=== PATIENT | male | born 1985 | race Caucasian/White ===

== ENCOUNTER 2017-03-01 17:32 | Observation (INO) | payer OTHER ==
[2017-03-01 18:18] LABS: ABS Basophils 0.1 10^3/ul (0-0.2); ABS Eosinophils 0 10^3/ul (0-0.6); ABS Lymphocytes 1.8 10^3/ul (1.0-4.8); ABS Monocytes 1.3 10^3/ul (0-0.8); ABS Neutrophils 16.6 10^3/ul (1.5-7.7); ABS Nucleated RBC 0.01 10^3/ul; Eosinophil % 0.1 % (0-6); Hematocrit 43 % (42-52); Hemoglobin 14.7 g/dl (14.0-18.0); Mean Corpuscular HGB Conc 34 g/dl (31-36); Mean Corpuscular Hemoglobin 30 pg (27-31); Mean Corpuscular Volume 88 fL (80-94); Mean Platelet Volume 8 um3 (7.4-10.4); Nucleated Red Blood Cells % 0; Platelet Count 328 10^3/ul (150-450); Red Cell Distribution Width 13 % (10.5-15); White Blood Count 19.8 10^3/ul (3.5-10.8)
[2017-03-01] MEDS ORDERED: NS 0.9% 1000 ML* 2,000 ML IV ONE ×2 (18:20→20:34)
[2017-03-01 18:31] LABS: EGFR Non-African American 66.5 (>60)
[2017-03-01] MEDS ORDERED: Iohexol 350* (CONTRAST) 500 ML MDV IV ONE (18:42)
--- NOTE | 2017-03-01 18:56 | RAD ---
INDICATION: Sharp shooting pains in the left lower ribs with inspiration COMPARISON: None TECHNIQUE: PA and lateral views of the chest were obtained. FINDINGS: The heart and mediastinum are normal in size and contour. The lungs are grossly clear. There is no evidence of large pleural effusion. Visualized bones are normal for the patient's age. There is no radiographic evidence of free air beneath the diaphragm IMPRESSION: No radiographic evidence of acute cardiopulmonary disease.
--- NOTE | 2017-03-01 19:20 | ED ---
HPI Chest Pain - HPI Summary HPI Summary: 31M presents with left lower rib pain with inspiration for past couple hours. He states the pain is sharp. He is diaphoretic on exam. He does smoke. He denies any recent travel or surgeries. He denies any nausea or vomiting. pain is located on left lower ribs and LUQ. normal bowel movement today. He denies any fever. He states was sick three weeks ago with a cold for three days but that has resolved. His pain started 30mins after he got some horrible news from his . He states that the pain is sharp and does not radiate anywhere. no history of kidney stones. only significant family history is DM. no history of CAD or blood clots. He denies any pain or swelling in his calf. He denies any cough. He denies using any drugs or ETOH today. family states may have anxiety but has never acted like this before. - History of Current Complaint Chief Complaint: EDChestWallPain Time Seen by Provider: 03/01/17 17:59 Pain Intensity: 9 - Allergy/Home Medications Allergies/Adverse Reactions: Allergies Allergy/AdvReac Type Severity Reaction Status Date / Time No Known Allergies Allergy Verified 03/01/17 17:40 Home Medications: Home Medications NK [No Home Medications Reported] 03/01/17 [History Confirmed 03/01/17] PMH/Surg Hx/FS Hx/Imm Hx Endocrine/Hematology History: Denies: Hx Diabetes Cardiovascular History: Denies: Hx Hypertension History: Denies: Hx Renal Disease Infectious Disease History: Yes Infectious Disease History: Denies: Traveled Outside the [place] in Last 30 Days - Family History Known Family History: Positive: Diabetes - Social History Alcohol Use: Rare Substance Use Type: Reports: None Smoking Status (MU): Light Every Day Tobacco Smoker Review of Systems Negative: Fever Positive: Chest Pain Positive: Shortness Of Breath. Negative: Cough Positive: Abdominal Pain. Negative: Vomiting, Diarrhea, Nausea All Other Systems Reviewed And Are Negative: Yes Physical Exam Triage Information Reviewed: Yes Vital Signs On Initial Exam: Initial Vitals Temp Pulse Resp BP Pulse Ox 98.6 F 97 18 151/123 94 03/01/17 17:37 03/01/17 17:37 03/01/17 17:37 03/01/17 17:37 03/01/17 17:37 Vital Signs Reviewed: Yes Appearance: Positive: Ill-Appearing Skin: Positive: Warm, Dry Head/Face: Positive: Normal Head/Face Inspection Eyes: Positive: Normal, EOMI, CLARK, Conjunctiva Clear ENT: Positive: Normal ENT inspection, Pharynx normal, TMs normal Respiratory/Lung Sounds: Positive: Clear to Auscultation, Breath Sounds Present , Other - tenderness over lateral aspect of ribs 7-12 Cardiovascular: Positive: Normal, RRR Abdomen Description: Positive: Soft, Other: - tenderness RUQ Bowel Sounds: Positive: Present Musculoskeletal: Positive: Normal Neurological: Positive: Normal Psychiatric: Positive: Normal - Abdi Coma Scale Coma Scale Total: 15 Diagnostics - Vital Signs Vital Signs Temp Pulse Resp BP Pulse Ox 03/01/17 19:00 104 128/66 98 03/01/17 18:37 100 149/78 97 03/01/17 18:08 92 03/01/17 18:00 111 34 151/82 92 03/01/17 17:39 87 95 03/01/17 17:38 151/123 03/01/17 17:37 98.6 F 97 18 151/123 94 - Laboratory Lab Results: Lab Results 03/01/17 03/01/17 03/01/17 Range/Units 18:07 18:07 18:07 WBC 19.8 H (3.5-10.8) 10^3/ul RBC 4.90 (4.0-5.4) 10^6/ul Hgb 14.7 (14.0-18.0) g/dl Hct 43 (42-52) % MCV 88 (80-94) fL MCH 30 (27-31) pg MCHC 34 (31-36) g/dl RDW 13 (10.5-15) % Plt Count 328 (150-450) 10^3/ul MPV 8 (7.4-10.4) um3 Neut % (Auto) 83.9 H (38-83) % Lymph % (Auto) 9.0 L (25-47) % Kittson % (Auto) 6.6 (1-9) % Eos % (Auto) 0.1 (0-6) % Baso % (Auto) 0.4 (0-2) % Absolute Neuts (auto) 16.6 H (1.5-7.7) 10^3/ul Absolute Lymphs (auto) 1.8 (1.0-4.8) 10^3/ul Absolute Monos (auto) 1.3 H (0-0.8) 10^3/ul Absolute Eos (auto) 0 (0-0.6) 10^3/ul Absolute Basos (auto) 0.1 (0-0.2) 10^3/ul Absolute Nucleated RBC 0.01 10^3/ul Nucleated RBC % 0 D-Dimer, Quantitative 609 H (Less Than 230) ng/mL Sodium 133 (133-145) mmol/L Potassium 4.4 (3.5-5.0) mmol/L Chloride 98 L (101-111) mmol/L Carbon Dioxide 30 (22-32) mmol/L Anion Gap 5 (2-11) mmol/L BUN 11 (6-24) mg/dL Creatinine 1.25 H (0.67-1.17) mg/dL Est GFR ( Amer) 85.5 (>60) Est GFR (Non-Af Amer) 66.5 (>60) BUN/Creatinine Ratio 8.8 (8-20) Glucose 137 H (70-100) mg/dL Lactic Acid (0.5-2.0) mmol/L Calcium 10.0 (8.6-10.3) mg/dL Total Bilirubin 1.10 H (0.2-1.0) mg/dL AST 54 H (13-39) U/L ALT 87 H (7-52) U/L Alkaline Phosphatase 87 (34-104) U/L Troponin I 0.00 (<0.04) ng/mL C-React Prot High Sens 18.20 mg/L Total Protein 8.1 (6.4-8.9) g/dL Albumin 4.3 (3.2-5.2) g/dL Globulin 3.8 (2-4) g/dL Albumin/Globulin Ratio 1.1 (1-3) Lipase < 10 L (11.0-82.0) U/L TSH 1.47 (0.34-5.60) mcIU/mL 03/01/17 Range/Units 18:07 WBC (3.5-10.8) 10^3/ul RBC (4.0-5.4) 10^6/ul Hgb (14.0-18.0) g/dl Hct (42-52) % MCV (80-94) fL MCH (27-31) pg MCHC (31-36) g/dl RDW (10.5-15) % Plt Count (150-450) 10^3/ul MPV (7.4-10.4) um3 Neut % (Auto) (38-83) % Lymph % (Auto) (25-47) % Kittson % (Auto) (1-9) % Eos % (Auto) (0-6) % Baso % (Auto) (0-2) % Absolute Neuts (auto) (1.5-7.7) 10^3/ul Absolute Lymphs (auto) (1.0-4.8) 10^3/ul Absolute Monos (auto) (0-0.8) 10^3/ul Absolute Eos (auto) (0-0.6) 10^3/ul Absolute Basos (auto) (0-0.2) 10^3/ul Absolute Nucleated RBC 10^3/ul Nucleated RBC % D-Dimer, Quantitative (Less Than 230) ng/mL Sodium (133-145) mmol/L Potassium (3.5-5.0) mmol/L Chloride (101-111) mmol/L Carbon Dioxide (22-32) mmol/L Anion Gap (2-11) mmol/L BUN (6-24) mg/dL Creatinine (0.67-1.17) mg/dL Est GFR ( Amer) (>60) Est GFR (Non-Af Amer) (>60) BUN/Creatinine Ratio (8-20) Glucose (70-100) mg/dL Lactic Acid 1.1 (0.5-2.0) mmol/L Calcium (8.6-10.3) mg/dL Total Bilirubin (0.2-1.0) mg/dL AST (13-39) U/L ALT (7-52) U/L Alkaline Phosphatase (34-104) U/L Troponin I (<0.04) ng/mL C-React Prot High Sens mg/L Total Protein (6.4-8.9) g/dL Albumin (3.2-5.2) g/dL Globulin (2-4) g/dL Albumin/Globulin Ratio (1-3) Lipase (11.0-82.0) U/L TSH (0.34-5.60) mcIU/mL Result Diagrams: 03/01/17 18:07 03/01/17 18:07 Lab Statement: Any lab studies that have been ordered have been reviewed, and results considered in the medical decision making process. - Radiology chest Xray Interpretation: No Acute Changes Radiology Interpretation Completed By: Radiologist - CT CTA CT Interpretation: Positive (See Comments) - 1. Poor bolus timing renders this examination nondiagnostic for determining pulmonary embolism beyond the right and left mainstem pulmonary arteries. There is no definite filling defect of the mainstem or right or left pulmonary arteries. 2. There is nodular density at the dependent portion of the left lower lobe which could represent round atelectasis or pneumonia depending on the patient's clinical presentation. 3. There is a right upper lobe pulmonary nodule with an average dimension of approximately 9 mm. Please correlate to any history of malignancy. Otherwise the patient's age would indicate this is infectious versus inflammatory and less likely neoplastic. CT Interpretation Completed By: Radiologist - EKG No standard instances Cardiac Rate: Tachycardia EKG Rhythm: Sinus Tachycardia EKG Interpretation: sinus tachycardia Re-Evaluation - Re-Evaluation First Eval Re-Evaluation Time: 21:54 Change: Improved Comment: feeling better with fluids Chest Pain Course/Dx - Course Course Of Treatment: 31M presents with left lower rib pain with inspiration for past couple hours. He states the pain is sharp. He is diaphoretic on exam. He does smoke. He denies any recent travel or surgeries. He denies any nausea or vomiting. pain is located on left lower ribs and LUQ. normal bowel movement today. He denies any fever. He states was sick three weeks ago with a cold for three days but that has resolved. His pain started 30mins after he got some horrible news from his . He states that the pain is sharp and does not radiate anywhere. no history of kidney stones. only significant family history is DM. no history of CAD or blood clots. He denies any pain or swelling in his calf. He denies using any drugs or ETOH today. on exam tenderness over left lower ribs and LUQ. appears ill. diaphoretic. labs wbc 19, d-dimer elevated. lactic normal. chest xray normal. is in sinus tachycardia on ekg. CTA unable to see if is blood clot, in left lower lobe possible pneumonia. had patient ambulate and heart rate increased in 130 and pulse ox 92. discussed with dr green and said to have patient admitted for pnemonia and possible PE rule out? dr green spoke with dr cain who agrees to admit. - Chest Pain Differential Diagnosis/HQI/PQRI: Chest Wall, Lower Respiratory Infection, Pulmonary Embolism - Diagnoses Provider Diagnoses: Chest pain, Pneumonia Discharge - Discharge Plan Condition: Stable Disposition: ADMITTED TO [facility]
--- NOTE | 2017-03-01 20:08 | RAD ---
INDICATION: Left upper quadrant pain with inspiration. COMPARISON: None. TECHNIQUE: Multidetector CT angiography images of the chest, abdomen and pelvis were obtained from the lung apices to the ischial tuberosities following the injection of 150 mL of Omnipaque 350 intravenous contrast. ANGIOGRAPHIC FINDINGS: Poor bolus timing renders this examination nondiagnostic for pulmonary embolism beyond the right and left mainstem pulmonary arteries. A cardiac technician lead is overlying the midline chest at the level of the mainstem pulmonary artery which may have caused the imaging to start sooner than when adequate contrast had filled the pulmonary arterial vasculature. There is no obvious filling defect in the mainstem or right or left pulmonary arteries. The lobar branches and beyond are not adequately evaluated for pulmonary embolism. NON-ANGIOGRAPHIC FINDINGS: CHEST: At the posterior aspect of the right upper lobe there is a nodule measuring 1 cm in the axial plane and 8 mm in the cephalocaudal projection (axial image 21 and sagittal image 49). At the right lung base there is mostly pleural-based round density (image 40 of 51). The lungs are otherwise grossly clear. There is no mediastinal or hilar lymphadenopathy. The heart and major vascular structures are grossly normal in appearance. ABDOMEN & PELVIS: The liver, spleen, pancreas and adrenal glands are grossly normal in appearance. The gallbladder is normal. The kidneys are normal in appearance without focal mass, calcification or signs of hydronephrosis. Contrast is seen filling the collecting system on the delayed phase imaging. Evaluation of the gastrointestinal tract is limited without oral contrast.. The small and large bowel are not distended. There is no gross retroperitoneal or mesenteric lymphadenopathy. The pelvic viscera is normal in appearance. . There are no sinister bone lesions. IMPRESSION: 1. Poor bolus timing renders this examination nondiagnostic for determining pulmonary embolism beyond the right and left mainstem pulmonary arteries. There is no definite filling defect of the mainstem or right or left pulmonary arteries. 2. There is nodular density at the dependent portion of the left lower lobe which could represent round atelectasis or pneumonia depending on the patient's clinical presentation. 3. There is a right upper lobe pulmonary nodule with an average dimension of approximately 9 mm. Please correlate to any history of malignancy. Otherwise the patient's age would indicate this is infectious versus inflammatory and less likely neoplastic.
[2017-03-01] MEDS ORDERED: Magnesium Hydroxide LIQ* 30 ML UDC PO PRN (20:57)
[2017-03-01] MEDS ORDERED: Morphine INJ* 2 MG/ML 1 ML SYRINGE (TWO MG - NEW SYRINGE VERSION) IV PRN (20:57)
[2017-03-01] MEDS ORDERED: Ondansetron INJ* 2 MG/ML VIAL IV PRN (20:57)
[2017-03-01] MEDS ORDERED: NS 0.9% 1000 ML* 3,000 ML IV ONE (20:57)
[2017-03-01] MEDS ORDERED: Albuterol 2.5 MG/3 ML NEB.SOL* (0.083%) INH PRN (20:57)
[2017-03-02] MEDS: Acetaminophen TAB* 325 MG PO PRN ×2 (01:15→06:07)
--- NOTE | 2017-03-02 03:09 | HP ---
HISTORY AND PHYSICAL: DATE OF ADMISSION: 03/01/17 TIME OF EVALUATION: 10 p.m. PRIMARY CARE PROVIDER: Unknown (assigned by [employer]). CHIEF COMPLAINT: Left lower rib pain with inspiration for a few hours. HISTORY OF PRESENT ILLNESS: Mr. Mcconnell is a 31-year-old gentleman with limited formal medical history who presents with left lower rib pain after awaking earlier today from sleep. The patient states that last night, he had several drinks of alcohol (estimates 2), although this is very unusual for him. The patient states that he was very tired this morning and took a nap mid to late morning. He awoken in the mid to late afternoon and noticed that he had pain on inspiration along his left lateral mid axial rib area. The patient states the pain was sharp and certainly associated with breathing. He was diaphoretic. The patient does smoke. He smokes a half a pack a day and has done so for 15 years. He has not had extensive travel, though he drives regionally in his car between cities in [facility]. The patient has not been around anyone sick, although he states that he had a cold for about 3 days duration about 3 weeks ago. The patient came to the emergency room. He had an indeterminate D-dimer and a very elevated white blood cell count. The D-dimer prompted a CT chest with contrast, which is inconclusive for PE. The patient did have an infiltrate in the left lower lobe in the parenchyma of the study. The infiltrate combined with the white cell count, combined with the location of the pain and his difficulty breathing were appropriate for clinical diagnosis of pneumonia. He is being treated with IV antibiotics and aggressive fluids. His lactic acid was normal. He is being referred for admission to the hospitalists service. PAST MEDICAL HISTORY: 1. Obesity. 2. History of facial trauma and jaw surgery. ALLERGIES: No known drug allergies. OUTPATIENT MEDICATIONS: None. SOCIAL HISTORY: The patient is going through a separation. He has 4 children, ages 1, 5, 6 and 16. His mother, Kira East is his surrogate decision maker. He has a full-time job. He lives independently and continues to smoke half a pack a day as he has done for the past 15 years. He drinks alcohol infrequently, but did drink 2 drinks last night. FAMILY HISTORY: Reviewed, but noncontributory to the current presentation. There is a history of diabetes in his family I believe. REVIEW OF SYSTEMS: Review of 14 systems was accomplished at the bedside. This was largely negative except for the pertinent positives as mentioned above in the HPI and past medical history. All other systems are negative. PHYSICAL EXAMINATION GENERAL APPEARANCE: Middle-aged man, obese, in no apparent distress. VITAL SIGNS: Temperature 98.6 Fahrenheit, blood pressure 150s/80s, pulse rate 80s to 100s with any movement well above 100, oxygen saturation 95% on 2 L. HEENT: Oropharynx is clear. Mucous membranes are moist. History of jaw trauma noted, but chronic. CHEST: Clear breath sounds anteriorly and posteriorly, but diminished at the left base posteriorly consistent with the location of his infiltrate. ABDOMEN: Obese, soft, nontender. EXTREMITIES: Warm and well perfused. Normal muscle bulk. MUSCULOSKELETAL: Exam is unremarkable. NEUROLOGIC: He has got no focal abnormalities including no sensory or proprioception or reflex component deficiencies. No sensory defects. PSYCHIATRY: Normal affect. No acute anxiety or depression. SKIN: Mildly diaphoretic, but otherwise intact and warm. DIAGNOSTIC STUDIES/LAB DATA: Admission data: White blood cell count 19.8, hemoglobin 14.7, platelets 328. Coagulation studies are significant for D- dimer of 609 (elevated). Chemistries significant for creatinine of 1.25, BUN of 11, the BUN to creatinine ratio was 8.8. Electrolytes are otherwise unremarkable. He does have an elevated AST and ALT at 54 and 87, respectively ( possibly fatty liver disease). Lipase less than 10, TSH 1.47. Imaging included a CT chest, abdomen, and pelvis following a chest x-ray. The chest x-ray showed no evidence of acute or cardiopulmonary disease. Again, the CT was done to rule out pulmonary embolism and there was no evidence of PE, though the study was poor for that, but the CT chest did show nodular density at the dependent portion of the left lower lobe, which could represent no atelectasis or pneumonia depending on the clinical presentation and I feel strongly based on the clinical presentation, this represents pneumonia. There is a right upper lobe pulmonary nodule in an average dimension of approximately 9 mm (subcentimeter). Please correlate any history of malignancy, otherwise the patient's age would indicate this is infectious versus inflammatory and less likely neoplastic (again, much more likely associated with infection). IMPRESSION: Mr. Mcconnell is a 31-year-old gentleman with likely aspiration related pneumonia owing to his infrequent alcohol use that temporarily correlated with this clinical presentation of pleuritic chest pain and an infiltrate. The patient is being placed on observation status for IV antibiotics and aggressive fluid therapy. The patient can be reevaluated for the need for oxygen and transitioned to oral antibiotics if he stabilizes. He should be set up with a primary care provider - currently he has [employer], but does not know who his assigned PCP is. The patient does not take any medications for discomfort. He can have IV morphine or NSAID. DVT prophylaxis with subcu heparin of 5000 units t.i.d. Full code. Surrogate decision maker is specified. TIME SPENT: Total time taken to admit Mr. Mcconnell was 45 minutes, greater than half that time spent going over the history and physical examination. [id number]/CPS #: [id number] MTDD
[2017-03-02] MEDS: Heparin VIAL(*) 5000 UNITS/ML VIAL (FIVE THOUSAND) SUBCUT SCH ×2 (03:39→05:02)
[2017-03-02 04:34] LABS: ABS Basophils 0.1 10^3/ul (0-0.2); ABS Eosinophils 0 10^3/ul (0-0.6); ABS Lymphocytes 2.5 10^3/ul (1.0-4.8); ABS Monocytes 1.6 10^3/ul (0-0.8); ABS Neutrophils 9.6 10^3/ul (1.5-7.7); ABS Nucleated RBC 0 10^3/ul; Eosinophil % 0.2 % (0-6); Hematocrit 37 % (42-52); Hemoglobin 12.4 g/dl (14.0-18.0); Lymphocyte % 18.1 % (25-47); Mean Corpuscular HGB Conc 33 g/dl (31-36); Mean Corpuscular Hemoglobin 30 pg (27-31); Mean Corpuscular Volume 91 fL (80-94); Mean Platelet Volume 8 um3 (7.4-10.4); Nucleated Red Blood Cells % 0; Platelet Count 277 10^3/ul (150-450); Red Blood Count 4.11 10^6/ul (4.0-5.4); Red Cell Distribution Width 13 % (10.5-15); White Blood Count 13.8 10^3/ul (3.5-10.8)
[2017-03-02 04:54] LABS: EGFR Non-African American 90.2 (>60)
[2017-03-02] MEDS ORDERED: cefTRIAXone(*) 1 GM in NS 0.9% 50 ML* 50 ML IVPB SCH (08:00)
[2017-03-02 08:26] VITALS: BP 124/62
[2017-03-02] MEDS ORDERED: Azithromycin IV(*) 500 MG in D5W 250 ML BAG* 250 ML IVPB SCH (09:00)
--- NOTE | 2017-03-02 12:24 | PN ---
Subjective Date of Service: 03/02/17 Interval History: Patient seen and examined at bedside. Denies fever, chills, shortness of breath , N/V/D. Pt states that the left sided chest discomfort has improved. Pt is anxious for discharge. Family History: Unchanged from Admission Social History: Unchanged from Admission Past Medical History: Unchanged from Admission Objective Active Medications: Acetaminophen (Tylenol Tab*) 650 mg PO Q4H PRN Reason: FEVER/PAIN Albuterol (Ventolin 2.5 Mg/3 Ml Neb.Beatriz*) 2.5 mg INH RT.[id number] AWAKE PRN Reason: sob/wheezing Heparin Sodium (Porcine) (Heparin Vial(*)) 5,000 units SUBCUT Q8HR VIRA Azithromycin 500 mg/ Dextrose 250 mls @ 250 mls/hr IVPB Q24H VIRA Ceftriaxone Sodium 1 gm/ (Sodium Chloride) 50 mls @ 200 mls/hr IVPB Q24H VIRA Magnesium Hydroxide (Milk Of Magnesia Liq*) 30 ml PO Q4H PRN Reason: CONSTIPATION Morphine Sulfate (Morphine Inj (Syringe)*) 2 mg IV Q4H PRN Reason: PAIN Ondansetron HCl (Zofran Inj*) 4 mg IV Q4H PRN Reason: NAUSEA/VOMITING Vital Signs - 8 hr 03/02/17 03/02/17 03/02/17 06:17 08:00 08:23 Temperature 98.2 F Pulse Rate 86 71 Respiratory 16 16 Rate Blood Pressure 176/79 124/62 (mmHg) O2 Sat by Pulse 95 Oximetry Oxygen Devices in Use Now: None Appearance: NAD, standing in room Ears/Nose/Mouth/Throat: Mucous Membranes Moist Respiratory: Symmetrical Chest Expansion and Respiratory Effort Cardiovascular: NL Sounds; No Murmurs; No JVD, RRR Abdominal: NL Sounds; No Tenderness; No Distention Extremities: No Edema Skin: No Rash or Ulcers Neurological: Alert and Oriented x 3, NL Muscle Strength and Tone Lines/Tubes/Other Access: Clean, Dry and Intact Peripheral IV - site benign Nutrition: Taking PO's Result Diagrams: 03/02/17 04:23 03/02/17 04:23 Additional Lab and Data: Assess/Plan/Problems-Billing Assessment: Mr. Mcconnell is a 31 yo male with PMH significant for obesity who presented to the emergency room with complaints of left lower rib pain and was found to have PNA. - Patient Problems (1) Pneumonia Code(s): J18.9 - PNEUMONIA, UNSPECIFIED ORGANISM SNOMED Code(s): 933690345 Comment: - Leukocytosis improving, afebrile - Blood cultures pending - Received 1 dose of IV ceftriaxone and azithromycin (2) Obesity Code(s): E66.9 - OBESITY, UNSPECIFIED SNOMED Code(s): 875493085 Comment: - BMI 38 (3) DVT prophylaxis Code(s): TBU6983 - SNOMED Code(s): 151161077 (4) Full code status Code(s): Z78.9 - OTHER SPECIFIED HEALTH STATUS SNOMED Code(s): 169666502 Status and Disposition: OBV. Stable for discharge to home today.
--- NOTE | 2017-03-03 16:17 | DS ---
DISCHARGE SUMMARY: DATE OF ADMISSION: 03/01/17 DATE OF DISCHARGE: 03/02/17 ATTENDING PHYSICIAN: Dr. Kwadwo Doshi * (dictated by Delia Neumann NP). PRIMARY CARE PROVIDER: Unknown. Patient states assigned by [facility] [employer], but is unaware. PRIMARY DIAGNOSIS: Community-acquired pneumonia. SECONDARY DIAGNOSIS: Obesity. STUDIES WHILE IN THE HOSPITAL: 1. Chest x-ray on 03/01/17. Radiologist's impression: No radiographic evidence for acute cardiopulmonary disease. 2. Chest, abdomen, pelvis, CTA from 03/01/17. Radiologist's impression: Poor bolus timing renders this examination nondiagnostic for determining pulmonary embolus beyond the right and left mainstem pulmonary arteries. There is no definite filling defect of the mainstem or right or left pulmonary arteries. There is a nodular density at the dependent portion of the left lower lobe which could represent round atelectasis or pneumonia depending on the patient's clinical presentation. There is a right upper lobe pulmonary nodule with an average dimension of approximately 9 mm. Please correlate to any history of malignancy. Otherwise, the patient's age would indicate this is infectious versus inflammatory and less likely neoplastic. NEW HOME MEDICATIONS: 1. Azithromycin 250 mg oral daily. 2. Cefdinir 300 mg oral twice daily for 9 days. 3. Acetaminophen 650 mg oral every 4 hours as needed for fever or pain. HISTORY OF PRESENT ILLNESS: Mr. Mcconnell is a 31-year-old male with no significant past medical history, who presented to the emergency room with complaints of left lower rib pain after waking from sleep. Patient had had several drinks of alcohol the night prior which was unusual for him. He felt very tired when he woke up in the morning and took a late morning nap. When he awoke in the afternoon, he noticed that on inspiration he had a discomfort in his left ribs. It was sharp and associated with his breathing. He noticed he was diaphoretic. Patient is a half a pack a day smoker and has smoked for the past 15 years. He has had no recent extended travel, although he drives between cities in [facility]. He had not been around anybody who had been sick, but stated he felt as though he had a cold approximately 3 weeks ago that lasted for 3 days. Due to his symptoms, he presented to the emergency room for further evaluation. While in the emergency room, the patient had a D-dimer that was elevated at 609. He had leukocytosis with a white blood cell count of 19.8. He had an acute kidney injury, elevated LFTs. He had a chest x-ray showing no acute findings. He then had a CT of his chest showing no PE in the mainstem, pulmonary arteries, but due to a poor bolus timing, we are unable to further evaluate for a PE. He was noted to have a nodular density in his left lower lobe in addition to a right upper lobe nodule. The patient was afebrile. Hospitalists were asked to evaluate the patient for admission. While in the hospital, the patient received IV fluids. He received a dose of IV ceftriaxone and azithromycin. His leukocytosis improved. He remained afebrile. He reported improvement in his left-sided chest discomfort and denied any shortness of breath. He was ambulating in the hallways, tolerating a diet. Mr. Mcconnell is stable for discharge to home today. Vital Signs are as follows: Temperature 98.2, heart rate 86, respiratory rate 16, O2 sat 95% on room air, blood pressure 124/62. DISCHARGE PLAN: Mr. Mcconnell will be discharged to home. Activity as tolerated. He will be on a regular diet. As far as his community-acquired pneumonia, he has been continued on cefdinir 300 mg oral twice daily for 9 more days to complete a 10-day course of antibiotics in addition to azithromycin 250 mg oral daily for 4 more days. The patient is unsure of who is primary care doctor at this time. He is encouraged to figure out who is his primary doctor or establish with another doctor and be seen in a followup in the next week. He has been asked to return to the emergency room for any chest discomfort that evolves from what he currently has or shortness of breath. This is a summarized report of complex medical history and hospital stay. For further details, please see the entire medical record. TIME SPENT: Time for this discharge was approximately 50 minutes, greater than half of that was spent with the patient discussing discharge plans and instructions. Reviewed by LYLE FRANKS 03/04/172028 [id number]/[facility] #: [id number] JARVIS
== END 2017-03-02 13:16 | disposition home or self-care (01) ==
LOC: ED 17:32 → MED 20:57
PROVIDERS: ADMIT Internal Medicine; ATTEND Internal Medicine
DX: J18.9 Pneumonia, unspecified organism (principal); E66.9 Obesity, unspecified; R07.81 Pleurodynia; F17.210 Nicotine dependence, cigarettes, uncomplicated; R06.02 Shortness of breath; R00.0 Tachycardia, unspecified; R10.12 Left upper quadrant pain
CPT/HCPCS: 36415; 71020; 71275; 74177; 80053; 83605; 83690; 84443; 84484; 85025; 85379; 86141; 87040; 93005; 96361; 96365; 96367; 96372; 99283; A9270-GY; G0378; J0456; J0696; J1644; Q9967